=== PATIENT | female | born 1970 | race Caucasian/White ===

== ENCOUNTER 2023-12-07 18:48 | Inpatient (IN) | payer BC, MEDICAID ==
[~2023-12-07] VITALS: Ht 170.2 cm; Wt 118.5 kg
[~2023-12-07 18:48] MED LIST: ASEN10TA PO; ATOR10TA87 PO; ATOR40TA PO; CLON-527 PO; CLON-529 PO; CYCL-1 PO; CYT5T PO; DESV100T PO; DESV50TA PO; DEXT25CP PO; DEXT50CP PO; DIVA-76 PO; FLUV100C2 PO; HYDR-3965 PO; LAMO200T2 PO; LEVO125T PO; LIOT5TAB10 PO; LISI20TA28 PO; LISI40TA13 PO; OMEP20CA16 PO; PARO20TA6 PO; RIVA15TA PO; SYN0.0125T PO; VILA40TA PO; WALK1EAC MC; ZIPR60CA7 PO; ZOLP10TA5 PO
[2023-12-07 19:34] LABS: BASOPHILS % (AUTO) 0.8 % (0-1); EOSINOPHILS # (AUTO) 0.3 X10'3 (0-0.9); EOSINOPHILS % (AUTO) 5.4 % (0-6); HEMATOCRIT 41.9 % (35.0-45.0); LYMPHOCYTES # (AUTO) 1.9 X10'3 (1.1-4.8); LYMPHOCYTES % (AUTO) 34.4 % (21-51); MEAN CORPUSCULAR HEMOGLOBIN 27.5 PG (27.0-31.0); MEAN CORPUSCULAR HGB CONC 33.3 g/dL (33.0-36.5); MEAN CORPUSCULAR VOLUME 82.5 FL (78-98); MEAN PLATELET VOLUME 8.7 FL (7.4-10.4); MONOCYTES # (AUTO) 0.4 X10'3 (0-0.9); MONOCYTES % (AUTO) 7.5 % (2-12); NEUTROPHILS # (AUTO) 2.9 X10'3 (1.8-7.7); NEUTROPHILS % (AUTO) 51.9 % (42-75); PLATELET COUNT 102 X10'3 (140-440); RED BLOOD COUNT 5.08 X10'6 (4.20-5.60); RED CELL DISTRIBUTION WIDTH 14.9 % (11.5-14.5); WHITE BLOOD COUNT 5.6 X10'3 (4.5-11.0)
[2023-12-07 19:41] LABS: D-DIMER 1.91 MG/L FEU (0-0.50)
[2023-12-07 19:45] LABS: ALANINE AMINOTRANSFERASE 39 U/L (12-78); ALBUMIN 3.3 G/DL (3.4-5.0); ALKALINE PHOSPHATASE 161 IU/L (46-116); ANION GAP 12 (8-16); ASPARTATE AMINO TRANSFERASE 51 U/L (10-37); BILIRUBIN,TOTAL 0.6 MG/DL (0.1-1.0); BLOOD UREA NITROGEN 16 MG/DL (7-18); BUN/CREATININE RATIO 17.8 (10.0-20.0); CALCIUM 8.8 MG/DL (8.5-10.1); CHLORIDE 105 MMOL/L (99-107); GLUCOSE 82 MG/DL (70-104); SODIUM 142 MMOL/L (135-145); TOTAL CARBON DIOXIDE 24.9 MMOL/L (24-32); TOTAL PROTEIN 6.6 G/DL (6.4-8.2); eCRCL 71 ML/MIN; eGFR 66 ML/MIN
[2023-12-07] MEDS ORDERED: iohexol 350MG/ML 100ml bottle IV ONE (19:46)
[2023-12-07 19:52] LABS: PRO BRAIN NATRIURETIC PEPTIDE 2076 PG/ML (0-125)
[2023-12-08] MEDS: azithromycin/NS 500mg/250ml 250 ML IV ONE (00:10)
[2023-12-08] MEDS: CefTRIAXone 2gm/D5W 50ml BAG 50 ML IV ONE (00:58)
[2023-12-08] MEDS: aspirin 325mg tablet, delayed-release (Ecotrin) PO ONE (01:01)
[2023-12-08] MEDS ORDERED: ALBUTEROL (01:52)
[2023-12-08] MEDS ORDERED: ESKE84SP (01:57)
[2023-12-08] MEDS ORDERED: FLUV50TA24 (01:57)
[2023-12-08] MEDS ORDERED: OXCA150T14 (01:57)
[2023-12-08] MEDS ORDERED: DESV100T16 PO (01:57)
[2023-12-08] MEDS ORDERED: [UNRECOGNIZED DRUG - CODE] (01:57)
[2023-12-08] MEDS ORDERED: ZOLPIDEM (01:57)
[2023-12-08] MEDS ORDERED: ZOLP10TA (01:57)
[2023-12-08] MEDS ORDERED: DEXT50CP (01:57)
[2023-12-08] MEDS ORDERED: AMLO10TA13 PO (01:57)
[2023-12-08] MEDS ORDERED: PANT40TA54 PO (01:57)
[2023-12-08] MEDS ORDERED: magnesium Cl slow-release 64mg tablet PO PRN (02:05)
[2023-12-08] MEDS ORDERED: magnesium 4gm in 100ml NS 100 ML IV PRN (02:05)
[2023-12-08] MEDS ORDERED: HYDROcodone/acetaminophen 10/325mg tab PO PRN (02:05)
[2023-12-08] MEDS ORDERED: acetaminophen 325mg tablet PO PRN ×2 (02:05)
[2023-12-08] MEDS ORDERED: magnesium 2GM in 50ml NS 50 ML IV PRN (02:05)
[2023-12-08] MEDS ORDERED: potassium Cl 40MEQ/1/2NS 520ml 520 ML IV PRN (02:05)
[2023-12-08] MEDS ORDERED: potassium Cl 20 mEq SR tablet PO PRN ×2 (02:05)
[2023-12-08] MEDS ORDERED: mag hydrox/Alum hydrox/simeth 30ml oral suspension PO PRN (02:05)
[2023-12-08] MEDS ORDERED: magnesium hydroxide 30ml (MOM) UD suspension PO PRN (02:05)
[2023-12-08] MEDS ORDERED: HYDROcodone/acetaminophen 5mg/325mg tablet PO PRN (02:05)
[2023-12-08] MEDS: ondansetron/PF 4mg/2ml inj IV PRN (02:36)
[2023-12-08] MEDS: furosemide 10 MG/1 ML 10ml inj IV SCH (02:37)
[2023-12-08 02:49] LABS: MAGNESIUM 1.9 MG/DL (1.5-2.4); POTASSIUM 3.9 MMOL/L (3.5-5.1)
[2023-12-08 03:00] LABS: HEMOGLOBIN A1C 5.9 % (4.5-6.2)
[2023-12-08] MEDS: pantoprazole 40mg Tablet.DR PO SCH (07:12)
[2023-12-08] MEDS: cloNIDine 0.1 mg tablet PO SCH (07:13)
[2023-12-08] MEDS: amLODIPine 5mg tablet PO SCH (07:14)
[2023-12-08] MEDS: lisinopril 20mg tablet PO SCH (07:15)
[2023-12-08] MEDS: heparin, porcine 5000 units/ml vial SQ SCH (07:16)
[2023-12-08] MEDS: K and/or MAG REPLACEMENT MC SCH (08:00)
[2023-12-08] MEDS: levoTHYROXINE 125mcg tablet PO SCH (08:29)
[2023-12-08] MEDS: liothyronine sod 5mcg tablet PO SCH (08:30)
[2023-12-08] MEDS: asenapine 5mg TAB.SUBL SL SCH (08:31)
[2023-12-08] MEDS: CefTRIAXone/D5W-Rocephin 1gm 50 ML IV SCH (19:20)
[2023-12-08] MEDS: atorvastatin 10mg tablet PO SCH (20:29)
[2023-12-08] MEDS ORDERED: CefTRIAXone/D5W-Rocephin 1gm 50 ML IV SCH (23:00)
[2023-12-09] VITALS (9 sets, daily range): BP systolic 95–124; BP diastolic 46–82; PULSE 84–99; RESP 16–27; TEMP 97.7–98.3; O2SAT 93–98
[2023-12-09] MEDS: azithromycin/NS 500mg/250ml 250 ML IV SCH (03:26)
[2023-12-09 07:58] LABS: BASOPHILS % (AUTO) 0.8 % (0-1); EOSINOPHILS # (AUTO) 0.4 X10'3 (0-0.9); EOSINOPHILS % (AUTO) 9.3 % (0-6); HEMATOCRIT 39.9 % (35.0-45.0); HEMOGLOBIN 13.1 g/dl (12.0-16.0); LYMPHOCYTES % (AUTO) 24.7 % (21-51); MEAN CORPUSCULAR HEMOGLOBIN 27.3 PG (27.0-31.0); MEAN CORPUSCULAR HGB CONC 32.7 g/dL (33.0-36.5); MEAN CORPUSCULAR VOLUME 83.4 FL (78-98); MEAN PLATELET VOLUME 8.8 FL (7.4-10.4); MONOCYTES # (AUTO) 0.4 X10'3 (0-0.9); MONOCYTES % (AUTO) 10.9 % (2-12); NEUTROPHILS # (AUTO) 2.2 X10'3 (1.8-7.7); NEUTROPHILS % (AUTO) 54.3 % (42-75); PLATELET COUNT 99 X10'3 (140-440); RED BLOOD COUNT 4.78 X10'6 (4.20-5.60); RED CELL DISTRIBUTION WIDTH 15.5 % (11.5-14.5)
[2023-12-09 08:17] LABS: ALANINE AMINOTRANSFERASE 35 U/L (12-78); ALBUMIN/GLOBULIN RATIO 0.9 (1.1-1.5); ALKALINE PHOSPHATASE 138 IU/L (46-116); ANION GAP 10 (8-16); ASPARTATE AMINO TRANSFERASE 48 U/L (10-37); BILIRUBIN,TOTAL 0.4 MG/DL (0.1-1.0); BLOOD UREA NITROGEN 16 MG/DL (7-18); BUN/CREATININE RATIO 20.5 (10.0-20.0); CALCIUM 8.5 MG/DL (8.5-10.1); CHLORIDE 110 MMOL/L (99-107); CHOL/HDL RATIO 4.9 (0.00-4.99); CHOLESTEROL 151 MG/DL (0-200); CREATININE 0.78 MG/DL (0.40-0.90); GLUCOSE 113 MG/DL (70-104); HDL CHOLESTEROL 31 MG/DL (35-60); LDL CHOLESTEROL 78 MG/DL (50-100); MAGNESIUM 2.3 MG/DL (1.5-2.4); PHOSPHORUS 5.2 MG/DL (2.3-4.5); SODIUM 146 MMOL/L (135-145); TOTAL CARBON DIOXIDE 26.4 MMOL/L (24-32); TOTAL PROTEIN 6.2 G/DL (6.4-8.2); TRIGLYCERIDES 235 MG/DL (20-135); eCRCL 82 ML/MIN; eGFR 78 ML/MIN
[2023-12-09 10:43] LABS: THYROID STIMULATING HORMONE 0.76 ulU/ml (0.34-4.50)
[2023-12-09] MEDS: zolpidem 5mg tablet PO SCH (21:11)
[2023-12-10 03:06] VITALS: PULSE 96; RESP 17; O2SAT 92
[2023-12-10 06:00] VITALS: BP 126/63; PULSE 104; RESP 23; TEMP 97.4; O2SAT 94
[2023-12-10 07:06] LABS: HEMOGLOBIN 13.6 g/dl (12.0-16.0); WHITE BLOOD COUNT 4.2 X10'3 (4.5-11.0)
[2023-12-10 07:09] LABS: EOSINOPHILS # (AUTO) 0.3 X10'3 (0-0.9); EOSINOPHILS % (AUTO) 6.6 % (0-6); HEMATOCRIT 40.9 % (35.0-45.0); LYMPHOCYTES # (AUTO) 1.9 X10'3 (1.1-4.8); LYMPHOCYTES % (AUTO) 45.4 % (21-51); MEAN CORPUSCULAR HEMOGLOBIN 27.7 PG (27.0-31.0); MEAN CORPUSCULAR HGB CONC 33.2 g/dL (33.0-36.5); MEAN CORPUSCULAR VOLUME 83.4 FL (78-98); MEAN PLATELET VOLUME 9.1 FL (7.4-10.4); MONOCYTES # (AUTO) 0.4 X10'3 (0-0.9); MONOCYTES % (AUTO) 9.2 % (2-12); NEUTROPHILS # (AUTO) 1.6 X10'3 (1.8-7.7); NEUTROPHILS % (AUTO) 37.8 % (42-75); PLATELET COUNT 111 X10'3 (140-440); RED BLOOD COUNT 4.91 X10'6 (4.20-5.60); RED CELL DISTRIBUTION WIDTH 15.4 % (11.5-14.5)
[2023-12-10 07:19] LABS: ALANINE AMINOTRANSFERASE 38 U/L (12-78); ALBUMIN 3.1 G/DL (3.4-5.0); ALKALINE PHOSPHATASE 163 IU/L (46-116); ANION GAP 10 (8-16); ASPARTATE AMINO TRANSFERASE 52 U/L (10-37); BILIRUBIN,TOTAL 0.5 MG/DL (0.1-1.0); BLOOD UREA NITROGEN 13 MG/DL (7-18); BUN/CREATININE RATIO 15.1 (10.0-20.0); CALCIUM 8.6 MG/DL (8.5-10.1); CHLORIDE 107 MMOL/L (99-107); CREATININE 0.86 MG/DL (0.40-0.90); GLUCOSE 99 MG/DL (70-104); PHOSPHORUS 4.7 MG/DL (2.3-4.5); POTASSIUM 4.1 MMOL/L (3.5-5.1); SODIUM 144 MMOL/L (135-145); TOTAL CARBON DIOXIDE 27.1 MMOL/L (24-32); TOTAL PROTEIN 6.3 G/DL (6.4-8.2); eCRCL 74 ML/MIN; eGFR 69 ML/MIN
[2023-12-10 08:00] VITALS: RESP 23; O2SAT 94
[2023-12-10] MEDS ORDERED: furosemide 40mg/4ml inj IV SCH (08:00)
[2023-12-10] MEDS: furosemide 40mg tablet PO SCH (08:03)
[2023-12-10] MEDS: pantoprazole 40mg Tablet.DR PO SCH (08:04)
[2023-12-10 08:22] VITALS: PULSE 98; RESP 18; O2SAT 98
[2023-12-10 10:00] VITALS: BP 131/86; PULSE 96; RESP 16; TEMP 98.5; O2SAT 97
[2023-12-10] MEDS ORDERED: AZIT500T9 PO (14:33)
[2023-12-10] MEDS ORDERED: AMOX-580 PO (14:33)
[2023-12-10] MEDS ORDERED: PRED50TA PO (14:33)
[2023-12-10] MEDS: amox tr/potassium clavulanate 875/125mg TAB PO ONE (15:38)
[2023-12-10] MEDS: predniSONE 20 mg tablet PO ONE (15:38)
== END 2023-12-10 15:43 | disposition home or self-care (01) | DRG 280 ==
LOC: ER 18:49 → ED HOLD 12-08 02:08 → ORTHO 4S 12-09 01:30
PROVIDERS: ADMIT Internal Medicine Critical Care Medicine; ATTEND Family Medicine
PROC: B32T1ZZ Computerized Tomography (CT Scan) of Left Pulmonary Artery using Low Osmolar Contrast (ICD-10-PCS; principal; 2023-12-07)
PROC: B3201ZZ Computerized Tomography (CT Scan) of Thoracic Aorta using Low Osmolar Contrast (ICD-10-PCS; 2023-12-07)
PROC: B32S1ZZ Computerized Tomography (CT Scan) of Right Pulmonary Artery using Low Osmolar Contrast (ICD-10-PCS; 2023-12-07)
PROC: 5A09357 Assistance with Respiratory Ventilation, Less than 24 Consecutive Hours, Continuous Positive Airway Pressure (ICD-10-PCS; 2023-12-10)
DX: I11.0 Hypertensive heart disease with heart failure (principal); I21.A1 Myocardial infarction type 2; I50.33 Acute on chronic diastolic (congestive) heart failure; J96.21 Acute and chronic respiratory failure with hypoxia; I31.39 Other pericardial effusion (noninflammatory); J44.0 Chronic obstructive pulmonary disease with (acute) lower respiratory infection; Z20.822 Contact with and (suspected) exposure to COVID-19; I27.20 Pulmonary hypertension, unspecified; D69.6 Thrombocytopenia, unspecified; I27.81 Cor pulmonale (chronic); F32.A Depression, unspecified; F41.9 Anxiety disorder, unspecified; Z86.711 Personal history of pulmonary embolism; Z90.710 Acquired absence of both cervix and uterus; Z79.899 Other long term (current) drug therapy; Z79.01 Long term (current) use of anticoagulants
CPT/HCPCS: 36415; 71045; 71275; 80053; 80061; 83036; 83605; 83735; 83880; 84100; 84132; 84145; 84443; 84484; 85025; 85379; 87040; 87081; 87502; 87503; 87634; 87811; 93005; 94660; 94760; 96365; 96367; 97161; 97530; 99285; A4615; G0378; J0456; J0696; J1644; J1940; J2405; J3490; J7040; J7512; Q9967